=== PATIENT | female | born 1960 | race Hispanic/Latino ===

== ENCOUNTER → 2025-03-06 | Day surgery (SDC) | payer BC ==
[~2025-03-06] MED LIST: Sodium Bicarbonate 2.5 MEQ/5 ML SDV ONE
== END ==
LOC: CSHULT 12:57
PROVIDERS: ATTEND Student in an Organized Health Care Education/Training Program
PROC: 0G9H3ZX Drainage of Right Thyroid Gland Lobe, Percutaneous Approach, Diagnostic (ICD-10-PCS; principal; 2025-03-06)
DX: E04.1 Nontoxic single thyroid nodule (principal); I10 Essential (primary) hypertension; E78.5 Hyperlipidemia, unspecified; E11.65 Type 2 diabetes mellitus with hyperglycemia; E05.90 Thyrotoxicosis, unspecified without thyrotoxic crisis or storm; E78.1 Pure hyperglyceridemia; Z98.51 Tubal ligation status; Z79.84 Long term (current) use of oral hypoglycemic drugs; Z79.899 Other long term (current) drug therapy
CPT/HCPCS: 10005; 88173